=== PATIENT | male | born 1965 | race Two or more races ===

== ENCOUNTER 2017-12-26 13:19 | Inpatient (IN) | payer MEDICAID ==
[~2017-12-26] VITALS: Ht 170.2 cm; Wt 130.6 kg
[2017-12-26] MEDS ORDERED: GABAPENTIN100 MG ORAL (13:57)
[2017-12-26] MEDS ORDERED: METOPROLOL TAR100 M1 ORAL (13:57)
[2017-12-26] MEDS ORDERED: ZOLOFT50 MG ORAL (13:57)
[2017-12-26] MEDS ORDERED: SPIRONOLACTONE25 MG ORAL (13:57)
[2017-12-26] MEDS ORDERED: ASPIR 8181 MG ORAL (13:57)
[2017-12-26] MEDS ORDERED: SEROQUEL XR200 MG ORAL (13:57)
[2017-12-26] MEDS: Albuterol ud Inhalation HHN SCH ×3 (14:07→15:50)
[2017-12-26] MEDS: Ipratropium 0.02% Inh Soln 2.5ml UD HHN SCH ×3 (14:07→15:50)
[2017-12-26 14:30] VITALS: BP 137/99
[2017-12-26 14:30] LABS: BASOPHILS % (AUTO) 1.1 % (0.0-2.0); EOSINOPHILS % (AUTO) 1.2 % (0.0-3.0); HEMOGLOBIN 15.1 G/DL (14.2-18.0); LYMPHOCYTES % (AUTO) 24.5 % (20.0-45.0); MEAN CORPUSCULAR VOLUME 91 FL (80-99); NEUTROPHILS % (AUTO) 65.3 % (45.0-75.0); PLATELET COUNT 207 K/UL (150-450); RED BLOOD COUNT 5.05 M/UL (4.70-6.10); RED CELL DISTRIBUTION WIDTH 12.1 % (11.6-14.8); WHITE BLOOD COUNT 8.3 K/UL (4.8-10.8)
--- NOTE | 2017-12-26 14:31 | Diagnostic Imaging Report ---
Indication: Shortness of breath Technique: XRAY Chest 1v Comparison: None Findings: Heart is enlarged. Mediastinal contours are sharp. There is mild central pulmonary vascular congestion. There is no focal airspace consolidation. Costophrenic sulci are sharp. No pneumothorax. No acute osseous abnormality. IMPRESSION: Cardiomegaly with questionable mild central pulmonary vascular congestion. No focal consolidation, pleural effusion or pneumothorax.
[2017-12-26 14:48] LABS: ANION GAP 10 mmol/L (5-15); BLOOD UREA NITROGEN 22 mg/dL (7-18); CALCIUM 8.8 MG/DL (8.5-10.1); CARBON DIOXIDE 24 MMOL/L (21-32); CHLORIDE 110 MMOL/L (98-107); CREATININE 1.2 MG/DL (0.55-1.30); SODIUM 144 MMOL/L (136-145)
[2017-12-26 15:03] LABS: ALANINE AMINOTRANSFERASE 23 U/L (12-78); ALBUMIN 3.1 G/DL (3.4-5.0); ALBUMIN/GLOBULIN RATIO 0.8 (1.0-2.7); ALKALINE PHOSPHATASE 102 U/L (46-116); ASPARTATE AMINO TRANSFERASE 14 U/L (15-37); BILIRUBIN,TOTAL 0.6 MG/DL (0.2-1.0); CKMB 1.5 NG/ML (0.0-3.6); CREATINE KINASE 74 U/L (26-308)
--- NOTE | 2017-12-26 15:35 | Emergency Room Report ---
History of Present Illness General Chief Complaint: Dyspnea/Respdistress Source: Patient Present Illness HPI 52-year-old male presents ED complaining of shortness of breath 1 day. History of CHF and states that he has "fluid around his lungs". Denies any leg swelling. States he is compliant with his medications. States that he recently moved here and does not have a PMD. Denies chest pain. Denies fevers or chills. Denies cough. No other aggravating relieving factors. Denies any other associated symptoms Allergies: Coded Allergies: No Known Allergies (Unverified , 12/26/17) Patient History Past Medical History: HTN, COPD Past Surgical History: none Pertinent Family History: none Social History: Denies: smoking, alcohol use, drug use Immunizations: UTD Reviewed Nursing Documentation: PMH: Agreed; PSxH: Agreed Nursing Documentation-PMH Hx Cardiac Problems: Yes - chf afib Hx Hypertension: Yes Hx COPD: Yes Review of Systems All Other Systems: negative except mentioned in HPI Physical Exam Vital Signs Date Time Temp Pulse Resp B/P (MAP) Pulse Ox O2 Delivery O2 Flow Rate FiO2 12/26/17 13:21 98.0 105 22 99 Room Air 98.1 12/26/17 14:07 21 12/26/17 14:30 137/99 Sp02 EP Interpretation: reviewed, normal General Appearance: no apparent distress, alert, GCS 15, non-toxic Head: normocephalic, atraumatic Eyes: bilateral eye normal inspection, bilateral eye PERRL ENT: hearing grossly normal, normal pharynx, no angioedema, normal voice Neck: full range of motion, supple/symm/no masses Respiratory: chest non-tender, crackles, speaking full sentences, wheezing Cardiovascular #1: regular rate, rhythm, no edema Cardiovascular #2: 2+ carotid (R), 2+ carotid (L), 2+ radial (R), 2+ radial (L) , 2+ dorsalis pedis (R), 2+ dorsalis pedis (L) Gastrointestinal: normal bowel sounds, non tender, soft, non-distended, no guarding, no rebound Rectal: deferred Genitourinary: normal inspection, no CVA tenderness Musculoskeletal: back normal, gait/station normal, normal range of motion, non- tender, swelling - 1+ pitting edema Neurologic: alert, oriented x3, responsive, motor strength/tone normal, sensory intact, speech normal Psychiatric: judgement/insight normal, memory normal, mood/affect normal, no suicidal/homicidal ideation Reflexes: 3+ bicep (R), 3+ bicep (L), 3+ tricep (R), 3+ tricep (L), 3+ knee (R) , 3+ knee (L) Skin: normal color, no rash, warm/dry, well hydrated Lymphatic: no adenopathy Medical Decision Making Diagnostic Impression: Primary Impression: CHF exacerbation Qualified Codes: I50.9 - Heart failure, unspecified ER Course Hospital Course 52-year-old male presents ED complaining of shortness of breath, leg swelling Differential diagnoses include: [place]/unstable angina, contusion, muscle strain, PTX, rib fracture Clinical course Patient placed on stretcher. on diagnostic cardiac sonographer. After initial history and physical I ordered labs, EKG, chest x-ray labs reviewed- no leukocytosis, hemoglobin/hematocrit stable, creatinine elevated, troponins negative, BNP greater than 4000 EKG - NSR, no acute ischemic changes interpreted by me Chest x-ray- pulmonary congestion Breathing improved with nebulizer treatments Case discussed with Dr. Kern and he agreed to accept the patient to his service for further care and support I. I feel this is a highly complex case requiring extensive working including EKG/Rhythm strip, Xray/CT/US, Blood/urine lab work, repeat exams while in ED, and administration of strong opiates/narcotics for pain control, admission to hospital or close patient follow up. Diagnosis - CHF exacerbation admitted to telemetry in serious condition Labs Test 12/26/17 14:15 White Blood Count 8.3 K/UL (4.8-10.8) Red Blood Count 5.05 M/UL (4.70-6.10) Hemoglobin 15.1 G/DL (14.2-18.0) Hematocrit 46.0 % (42.0-52.0) Mean Corpuscular Volume 91 FL (80-99) Mean Corpuscular Hemoglobin 29.9 PG (27.0-31.0) Mean Corpuscular Hemoglobin Concent 32.8 G/DL (32.0-36.0) Red Cell Distribution Width 12.1 % (11.6-14.8) Platelet Count 207 K/UL (150-450) Mean Platelet Volume 7.0 FL (6.5-10.1) Neutrophils (%) (Auto) 65.3 % (45.0-75.0) Lymphocytes (%) (Auto) 24.5 % (20.0-45.0) Monocytes (%) (Auto) 8.0 % (1.0-10.0) Eosinophils (%) (Auto) 1.2 % (0.0-3.0) Basophils (%) (Auto) 1.1 % (0.0-2.0) Sodium Level 144 MMOL/L (136-145) Potassium Level 4.0 MMOL/L (3.5-5.1) Chloride Level 110 MMOL/L (98-107) Carbon Dioxide Level 24 MMOL/L (21-32) Anion Gap 10 mmol/L (5-15) Blood Urea Nitrogen 22 mg/dL (7-18) Creatinine 1.2 MG/DL (0.55-1.30) Estimat Glomerular Filtration Rate > 60 mL/min (>60) Glucose Level 99 MG/DL (74-106) Calcium Level 8.8 MG/DL (8.5-10.1) Total Bilirubin 0.6 MG/DL (0.2-1.0) Aspartate Amino Transf (AST/SGOT) 14 U/L (15-37) Alanine Aminotransferase (ALT/SGPT) 23 U/L (12-78) Alkaline Phosphatase 102 U/L (46-116) Total Creatine Kinase 74 U/L (26-308) Creatine Kinase MB 1.5 NG/ML (0.0-3.6) Creatine Kinase MB Relative Index 2.0 Troponin I 0.003 ng/mL (0.000-0.056) Pro-B-Type Natriuretic Peptide 4907 pg/mL (0-125) Total Protein 6.9 G/DL (6.4-8.2) Albumin 3.1 G/DL (3.4-5.0) Globulin 3.8 g/dL Albumin/Globulin Ratio 0.8 (1.0-2.7) EKG Diagnostic Results Rate: normal Rhythm: NSR ST Segments: no acute changes ASA given to the pt in ED: No Rhythm Strip Diag. Results EP Interpretation: yes Rhythm: NSR, no PVC's, no ectopy Chest X-Ray Diagnostic Results Chest X-Ray Diagnostic Results : Chest X-Ray Ordered: Yes # of Views/Limited/Complete: 1 View Indication: Shortness of Breath EP Interpretation: Yes Interpretation: no pneumothorax, other - cardiomegaly. pulmoanry congestion Impression: Other - chf Electronically Signed by: Electronically signed by Adolfo Irby MD Last Vital Signs Date Time Temp Pulse Resp B/P (MAP) Pulse Ox O2 Delivery O2 Flow Rate FiO2 12/26/17 14:39 83 12 100 Room Air 21 12/26/17 14:30 98.1 137/99 98.1 Status: improved Disposition: ADMITTED INPATIENT Condition: Serious Referrals: NOT CHOSEN IPA/,REFERRING (PCP) Adolfo Irby MD Dec 26, 2017 15:35
[2017-12-26 16:46] LABS: APPEARANCE,URINE CLEAR; BILIRUBIN, URINE NEGATIVE (NEGATIVE); GLUCOSE, URINE (UA) NEGATIVE (NEGATIVE); KETONES,URINE NEGATIVE (NEGATIVE); LEUKOCYTE ESTERASE ,URINE NEGATIVE (NEGATIVE); NITRITE,URINE NEGATIVE (NEGATIVE); PH,URINE 5 (4.5-8.0); PROTEIN,URINE 4+ (NEGATIVE); UROBILINOGEN,URINE NORMAL MG/DL (0.0-1.0)
[2017-12-26 16:58] LABS: COLOR,URINE YELLOW
[2017-12-26] MEDS ORDERED: Miralax 17gm pkt ORAL PRN (17:30)
[2017-12-26] MEDS ORDERED: Albuterol/Ipratropium 3ml neb HHN PRN (17:30)
[2017-12-26] MEDS ORDERED: INDOMETHACIN50 MG PO (19:44)
[2017-12-26 20:00] VITALS: BP 147/107
[2017-12-26] MEDS: QUEtiapine 200mg tab ORAL SCH (20:45)
[2017-12-26] MEDS: Indomethacin 25mg cap ORAL SCH (20:46)
[2017-12-26] MEDS: Heparin 5000 units/ml inj SUBQ SCH (20:46)
[2017-12-27] VITALS: BP 133/81
[2017-12-27 04:00] VITALS: BP 130/79
[2017-12-27 08:00] VITALS: BP 120/88
[2017-12-27 08:46] LABS: BASOPHILS % (AUTO) 1.1 % (0.0-2.0); EOSINOPHILS % (AUTO) 1.2 % (0.0-3.0); HEMATOCRIT 45.8 % (42.0-52.0); HEMOGLOBIN 15.6 G/DL (14.2-18.0); LYMPHOCYTES % (AUTO) 28.2 % (20.0-45.0); MEAN CORPUSCULAR VOLUME 89 FL (80-99); MONOCYTES % (AUTO) 6.6 % (1.0-10.0); NEUTROPHILS % (AUTO) 62.9 % (45.0-75.0); PLATELET COUNT 210 K/UL (150-450); RED BLOOD COUNT 5.13 M/UL (4.70-6.10); RED CELL DISTRIBUTION WIDTH 11.7 % (11.6-14.8); WHITE BLOOD COUNT 6.4 K/UL (4.8-10.8)
[2017-12-27 09:04] LABS: ALBUMIN 2.9 G/DL (3.4-5.0); ANION GAP 9 mmol/L (5-15); BLOOD UREA NITROGEN 20 mg/dL (7-18); CALCIUM 9.1 MG/DL (8.5-10.1); CARBON DIOXIDE 28 MMOL/L (21-32); CHLORIDE 107 MMOL/L (98-107); CREATININE 1.3 MG/DL (0.55-1.30); PHOSPHORUS 3.4 MG/DL (2.5-4.9); POTASSIUM 3.4 MMOL/L (3.5-5.1); SODIUM 144 MMOL/L (136-145)
[2017-12-27] MEDS: Indomethacin 25mg cap ORAL SCH ×3 (09:05→18:03)
[2017-12-27] MEDS: Heparin 5000 units/ml inj SUBQ SCH (09:09)
[2017-12-27] MEDS: Sertraline 50mg tab ORAL SCH (09:14)
[2017-12-27 12:00] VITALS: BP 142/102
--- NOTE | 2017-12-27 12:13 | Consultation ---
History of Present Illness General Date patient seen: Dec 27, 2017 Chief Complaint: Dyspnea/Respdistress Present Illness HPI 52-year-old male with hx of afib, CHF, presented to ED complaining of shortness of breath 1 day. States he is compliant with his medications. pt was found to have acute CHF and admitted to telemetry for further management. Allergies: Coded Allergies: No Known Allergies (Unverified , 12/26/17) Medication History Scheduled Aspirin* (Aspir 81*), 81 MG ORAL DAILY, (Reported) Gabapentin* (Gabapentin*), 100 MG ORAL BID, (Reported) Indomethacin (Indomethacin), 50 MG PO TID, (Reported) Metoprolol Tartrate* (Metoprolol Tartrate*), 100 MG ORAL EVERY 12 HOURS, ( Reported) Quetiapine Fumarate (Seroquel Xr), 200 MG ORAL BEDTIME, (Reported) Sertraline Hcl* (Zoloft*), 50 MG ORAL DAILY, (Reported) Spironolactone* (Aldactone*), 25 MG ORAL DAILY, (Reported) Patient History Healthcare decision maker self Resuscitation status Full Code Advanced Directive on File No Past Medical/Surgical History Past Medical/Surgical History: (1) Atrial fibrillation Review of Systems All Other Systems: negative except mentioned in HPI Physical Exam General Appearance: WD/WN Lines, tubes and drains: peripheral HEENT: normocephalic Neck: non-tender, normal alignment Respiratory/Chest: chest wall non-tender, lungs clear Breasts: no masses Cardiovascular/Chest: normal peripheral pulses Abdomen: normal bowel sounds Genitourinary/Rectal: normal genital exam Last 24 Hour Vital Signs Date Time Temp Pulse Resp B/P (MAP) Pulse Ox O2 Delivery O2 Flow Rate FiO2 12/27/17 09:07 84 120/88 12/27/17 08:39 Room Air 12/27/17 08:00 97.3 84 20 120/88 (99) 98 97.3 12/27/17 04:40 90 20 Room Air 21 12/27/17 04:00 74 12/27/17 04:00 98.2 70 20 130/79 (96) 98 98.2 12/27/17 00:00 98.3 74 20 133/81 (98) 94 98.3 12/27/17 00:00 81 12/26/17 21:00 Room Air 12/26/17 20:46 89 147/107 12/26/17 20:00 98.0 89 23 147/107 (120) 97 98.0 12/26/17 20:00 90 12/26/17 18:45 Room Air Room Air 12/26/17 17:10 98.1 94 20 137/99 100 Room Air 98.1 12/26/17 15:50 97 20 100 Room Air 21 12/26/17 14:39 83 12 100 Room Air 21 12/26/17 14:30 98.1 94 14 137/99 100 Room Air 98.1 12/26/17 14:30 89 17 Room Air 12/26/17 14:21 89 17 100 Room Air 21 12/26/17 14:19 87 16 100 Room Air 12/26/17 14:10 86 16 Room Air 12/26/17 14:07 86 16 100 Room Air 12/26/17 13:21 98.0 105 22 99 Room Air 98.1 Intake and Output 12/26/17 12/27/17 19:00 07:00 Intake Total 0 ml 480 ml Output Total 1000 ml Balance 0 ml -520 ml Intake Oral 0 ml 480 ml Output Urine Total 1000 ml Laboratory Tests Test 12/26/17 14:15 12/26/17 16:21 12/26/17 19:50 12/27/17 08:20 White Blood Count 8.3 K/UL (4.8-10.8) 6.4 K/UL (4.8-10.8) Red Blood Count 5.05 M/UL (4.70-6.10) 5.13 M/UL (4.70-6.10) Hemoglobin 15.1 G/DL (14.2-18.0) 15.6 G/DL (14.2-18.0) Hematocrit 46.0 % (42.0-52.0) 45.8 % (42.0-52.0) Mean Corpuscular Volume 91 FL (80-99) 89 FL (80-99) Mean Corpuscular Hemoglobin 29.9 PG (27.0-31.0) 30.3 PG (27.0-31.0) Mean Corpuscular Hemoglobin Concent 32.8 G/DL (32.0-36.0) 33.9 G/DL (32.0-36.0) Red Cell Distribution Width 12.1 % (11.6-14.8) 11.7 % (11.6-14.8) Platelet Count 207 K/UL (150-450) 210 K/UL (150-450) Mean Platelet Volume 7.0 FL (6.5-10.1) 6.9 FL (6.5-10.1) Neutrophils (%) (Auto) 65.3 % (45.0-75.0) 62.9 % (45.0-75.0) Lymphocytes (%) (Auto) 24.5 % (20.0-45.0) 28.2 % (20.0-45.0) Monocytes (%) (Auto) 8.0 % (1.0-10.0) 6.6 % (1.0-10.0) Eosinophils (%) (Auto) 1.2 % (0.0-3.0) 1.2 % (0.0-3.0) Basophils (%) (Auto) 1.1 % (0.0-2.0) 1.1 % (0.0-2.0) Sodium Level 144 MMOL/L (136-145) 144 MMOL/L (136-145) Potassium Level 4.0 MMOL/L (3.5-5.1) 3.4 MMOL/L (3.5-5.1) L Chloride Level 110 MMOL/L (98-107) H 107 MMOL/L (98-107) Carbon Dioxide Level 24 MMOL/L (21-32) 28 MMOL/L (21-32) Anion Gap 10 mmol/L (5-15) 9 mmol/L (5-15) Blood Urea Nitrogen 22 mg/dL (7-18) H 20 mg/dL (7-18) H Creatinine 1.2 MG/DL (0.55-1.30) 1.3 MG/DL (0.55-1.30) Estimat Glomerular Filtration Rate > 60 mL/min (>60) 58.4 mL/min (>60) Glucose Level 99 MG/DL (74-106) 138 MG/DL (74-106) H Calcium Level 8.8 MG/DL (8.5-10.1) 9.1 MG/DL (8.5-10.1) Total Bilirubin 0.6 MG/DL (0.2-1.0) Aspartate Amino Transf (AST/SGOT) 14 U/L (15-37) L Alanine Aminotransferase (ALT/SGPT) 23 U/L (12-78) Alkaline Phosphatase 102 U/L (46-116) Total Creatine Kinase 74 U/L (26-308) Creatine Kinase MB 1.5 NG/ML (0.0-3.6) Creatine Kinase MB Relative Index 2.0 Troponin I 0.003 ng/mL (0.000-0.056) 0.004 ng/mL (0.000-0.056) Pro-B-Type Natriuretic Peptide 4907 pg/mL (0-125) H Total Protein 6.9 G/DL (6.4-8.2) Albumin 3.1 G/DL (3.4-5.0) L 2.9 G/DL (3.4-5.0) L Globulin 3.8 g/dL Albumin/Globulin Ratio 0.8 (1.0-2.7) L Urine Color Yellow Urine Appearance Clear Urine pH 5 (4.5-8.0) Urine Specific [place] 1.020 (1.005-1.035) Urine Protein 4+ (NEGATIVE) H Urine Glucose (UA) Negative (NEGATIVE) Urine Ketones Negative (NEGATIVE) Urine Occult Blood 2+ (NEGATIVE) H Urine Nitrite Negative (NEGATIVE) Urine Bilirubin Negative (NEGATIVE) Urine Urobilinogen Normal MG/DL (0.0-1.0) Urine Leukocyte Esterase Negative (NEGATIVE) Urine RBC 2-4 /HPF (0 - 0) H Urine WBC 0-2 /HPF (0 - 0) Urine Squamous Epithelial Cells Few /LPF (NONE/OCC) Urine Bacteria Few /HPF (NONE) Urine Opiates Screen Negative (NEGATIVE) Urine Barbiturates Screen Negative (NEGATIVE) Phencyclidine (PCP) Screen Negative (NEGATIVE) Urine Amphetamines Screen Negative (NEGATIVE) Urine Benzodiazepines Screen Negative (NEGATIVE) Urine Cocaine Screen Negative (NEGATIVE) Urine Marijuana (THC) Screen Positive (NEGATIVE) H Phosphorus Level 3.4 MG/DL (2.5-4.9) Height (Feet): 5 Height (Inches): 7.00 Weight (Pounds): 253 Medications Current Medications Medications (Trade) Dose Ordered Sig/Yoon Route PRN Reason Start Time Stop Time Status Last Admin Dose Admin Acetaminophen (Tylenol) 650 mg Q4H PRN ORAL Fever 12/26/17 17:30 01/25/18 17:29 Albuterol/ Ipratropium (Albuterol/ Ipratropium) 3 ml Q4H PRN HHN Shortness of Breath 12/26/17 17:30 12/31/17 17:29 Dextrose (Dextrose 50%) 25 ml STAT PRN IV Hypoglycemia 12/26/17 17:30 01/25/18 17:29 Dextrose (Dextrose 50%) 50 ml STAT PRN IV Hypoglycemia 12/26/17 17:45 01/25/18 17:44 Furosemide (Lasix) 40 mg Q8H IV 12/27/17 00:00 01/26/18 00:00 12/27/17 09:14 Heparin Sodium (Porcine) (Heparin 5000 units/ml) 5,000 units EVERY 12 HOURS SUBQ 12/26/17 21:00 01/25/18 20:59 12/27/17 09:09 Indomethacin (Indocin) 50 mg THREE TIMES A DAY ORAL 12/26/17 20:30 01/25/18 20:29 12/27/17 09:05 Metoprolol Tartrate (Lopressor) 100 mg EVERY 12 HOURS ORAL 12/26/17 21:00 01/25/18 20:59 12/27/17 09:07 Ondansetron HCl (Zofran) 4 mg Q6H PRN IVP Nausea & Vomiting 12/26/17 17:30 01/25/18 17:29 Polyethylene Glycol (Miralax) 17 gm DAILYPRN PRN ORAL Constipation 12/26/17 17:30 01/25/18 17:29 Quetiapine Fumarate (SEROquel) 200 mg BEDTIME ORAL 12/26/17 21:00 01/25/18 20:59 12/26/17 20:45 Sertraline HCl (Zoloft) 50 mg DAILY ORAL 12/27/17 09:00 01/26/18 08:59 12/27/17 09:14 Temazepam (Restoril) 15 mg HSPRN PRN ORAL Insomnia 12/26/17 17:30 01/02/18 17:29 Assessment/Plan Problem List: (1) CHF exacerbation ICD Codes: I50.9 - Heart failure, unspecified SNOMED: 58666921 Qualifiers: Qualified Codes: I50.9 - Heart failure, unspecified (2) Atrial fibrillation ICD Codes: I48.91 - Unspecified atrial fibrillation SNOMED: 61576234 Assessment/Plan diuretics echo check electrolytes cxr and bnp in am adjust cardiac meds. Edwina Chappell MD Dec 27, 2017 12:13
--- NOTE | 2017-12-27 12:39 | Diagnostic Imaging Report ---
Indication: Dyspnea Technique: One view of the chest Comparison: 12/26/2017 Findings: Heart remains borderline enlarged. There is equivocal minimal pulmonary interstitial congestion, unchanged from previous study. Pleural spaces remain clear Impression: Equivocal minimal interstitial congestion, unchanged over one day
[2017-12-27 16:00] VITALS: BP 134/78
--- NOTE | 2017-12-27 19:30 | History and Physical Report ---
DATE OF ADMISSION: 12/26/2017 TIME: 2 p.m. CONSULTANTS: 1. Silvano Maloney M.D. 2. Edwina Chappell M.D. CHIEF COMPLAINT: Shortness of breath, CHF, COPD, and hypertension. BRIEF HISTORY: This is a 52-year-old male, who lives at home with increased shortness of breath for two days, came to [facility], diagnosed with CHF and COPD exacerbation, admitted to telemetry for further care. Currently, slight short in bed. No complaint. PAST MEDICAL HISTORY: Hypertension, COPD, and CHF, possible atrial fibrillation. PAST SURGICAL HISTORY: None. MEDICATIONS: Zoloft, Lasix, Lopressor, heparin, Seroquel, Indocin, Restoril, Zofran and Tylenol. ALLERGIES: Denies. SOCIAL HISTORY: Positive smoking. No alcohol. No intravenous drug abuse. FAMILY HISTORY: Noncontributory. REVIEW OF SYSTEMS: No chest pain. Slight short of breath. No nausea, vomiting, or diarrhea. PHYSICAL EXAMINATION: GENERAL: Calm in bed, oriented x2, in no acute distress. VITAL SIGNS: Temperature 97 degrees, pulse 84, respirations 20 and blood pressure 120/88. CARDIOVASCULAR: No murmur. LUNGS: Distant. Poor air exchange. ABDOMEN: Bowel sounds positive. Nontender. Nondistended. EXTREMITIES: No cyanosis or edema. NEUROLOGIC: The patient moves all extremities, slightly weak. LABORATORY AND DIAGNOSTIC DATA: CBC is normal. BMP show potassium 3.4, BUN 20, and glucose 138, otherwise BMP is normal. Albumin 2.9. Troponin 0.003 and 0.004. Urine toxicology positive for marijuana. Urinalysis, 2+ occult blood and 4+ protein, otherwise normal. ASSESSMENT: 1. CHF. 2. Shortness of breath. 3. COPD. 4. Hypertension. 5. Atrial fibrillation. PLAN: 1. Continue previous medications. 2. O2 and pulmonary treatment. 3. Blood pressure control. 4. Dietary followup. 5. CBC and BMP in the morning. Paolo Kern D.O. DR: LASHAY JOB#: [id number] CC:
--- NOTE | 2017-12-27 19:45 | Cardiology Progress Note ---
Assessment/Plan Assessment/Plan The patient is seen and examined, full consult note will be dictated shortly. Objective Last 24 Hour Vital Signs Date Time Temp Pulse Resp B/P (MAP) Pulse Ox O2 Delivery O2 Flow Rate FiO2 12/27/17 16:00 97.0 79 22 134/78 (96) 95 97.0 12/27/17 16:00 89 12/27/17 12:00 86 12/27/17 12:00 97.7 86 23 142/102 (115) 95 97.7 12/27/17 09:07 84 120/88 12/27/17 08:39 Room Air 12/27/17 08:00 97.3 84 20 120/88 (99) 98 97.3 12/27/17 08:00 81 12/27/17 04:40 90 20 Room Air 21 12/27/17 04:00 74 12/27/17 04:00 98.2 70 20 130/79 (96) 98 98.2 12/27/17 00:00 98.3 74 20 133/81 (98) 94 98.3 12/27/17 00:00 81 12/26/17 21:00 Room Air 12/26/17 20:46 89 147/107 12/26/17 20:00 98.0 89 23 147/107 (120) 97 98.0 12/26/17 20:00 90 Intake and Output 12/26/17 12/27/17 19:00 07:00 Intake Total 0 ml 480 ml Output Total 1000 ml Balance 0 ml -520 ml Intake Oral 0 ml 480 ml Output Urine Total 1000 ml Laboratory Tests Test 12/26/17 19:50 12/27/17 08:20 Troponin I 0.004 ng/mL (0.000-0.056) White Blood Count 6.4 K/UL (4.8-10.8) Red Blood Count 5.13 M/UL (4.70-6.10) Hemoglobin 15.6 G/DL (14.2-18.0) Hematocrit 45.8 % (42.0-52.0) Mean Corpuscular Volume 89 FL (80-99) Mean Corpuscular Hemoglobin 30.3 PG (27.0-31.0) Mean Corpuscular Hemoglobin Concent 33.9 G/DL (32.0-36.0) Red Cell Distribution Width 11.7 % (11.6-14.8) Platelet Count 210 K/UL (150-450) Mean Platelet Volume 6.9 FL (6.5-10.1) Neutrophils (%) (Auto) 62.9 % (45.0-75.0) Lymphocytes (%) (Auto) 28.2 % (20.0-45.0) Monocytes (%) (Auto) 6.6 % (1.0-10.0) Eosinophils (%) (Auto) 1.2 % (0.0-3.0) Basophils (%) (Auto) 1.1 % (0.0-2.0) Sodium Level 144 MMOL/L (136-145) Potassium Level 3.4 MMOL/L (3.5-5.1) L Chloride Level 107 MMOL/L (98-107) Carbon Dioxide Level 28 MMOL/L (21-32) Anion Gap 9 mmol/L (5-15) Blood Urea Nitrogen 20 mg/dL (7-18) H Creatinine 1.3 MG/DL (0.55-1.30) Estimat Glomerular Filtration Rate 58.4 mL/min (>60) Glucose Level 138 MG/DL (74-106) H Calcium Level 9.1 MG/DL (8.5-10.1) Phosphorus Level 3.4 MG/DL (2.5-4.9) Albumin 2.9 G/DL (3.4-5.0) L Silvano Maloney MD Dec 27, 2017 19:45
[2017-12-27 20:00] VITALS: BP 136/111
[2017-12-27] MEDS: dilTIAZem HCl 30mg tab ORAL SCH ×2 (20:35→23:52)
[2017-12-27] MEDS: QUEtiapine 200mg tab ORAL SCH (20:36)
[2017-12-27] MEDS ORDERED: Xarelto 10mg tab ORAL SCH (21:00)
[2017-12-28] VITALS: BP 128/64
--- NOTE | 2017-12-28 03:30 | Consultation ---
DATE OF CONSULTATION: 12/27/2017 CARDIOLOGY CONSULTATION CONSULTING PHYSICIAN: Silvano Maloney M.D. REFERRING PHYSICIAN: Paolo Kern D.O. REASON FOR CONSULTATION: Management of shortness of breath. HISTORY OF PRESENT ILLNESS: The patient is a very unfortunate 52-year-old gentleman who presents to the hospital with shortness of breath for about a day. He states that he was recently passed out few times and was admitted to [facility] and was given IV fluid and was discharged home. He ran out of medications such as metoprolol and Lasix for the past week. He states that he has been having persistent atrial fibrillation for the past three and half years and he underwent electrical cardioversion once at that time, which was successful initially, however, he went back to atrial fibrillation. He was seen by a typewriter aligner in [place] and was on a combination of metoprolol for rate control as well as Xarelto as an anticoagulant agent. He also is current daily smoker, smoking about 10 to 12 cigarettes per day and has history of COPD. In the past, he was treated with prednisone tapering dose. PAST MEDICAL HISTORY: 1. Hypertension. 2. History of persistent atrial fibrillation, status post cardioversion in the past. 3. History of COPD. 4. History of PTSD. 5. History of congestive heart failure. PAST SURGICAL HISTORY: None. MEDICATIONS: List of medications at home, aspirin 81 mg p.o. daily, gabapentin 100 mg p.o. twice daily, indomethacin 50 mg three times daily, metoprolol 100 mg q.12 h., Seroquel 200 mg at bedtime, Zoloft 50 mg daily, and Aldactone 25 mg daily. ALLERGIES: No known drug allergies. SOCIAL HISTORY: Smokes about 10 to 12 cigarettes per day. Denies any alcohol or illicit drug use. FAMILY HISTORY: No premature coronary artery disease or arrhythmogenic in the first-degree relatives. REVIEW OF SYSTEMS: A 12-system review done essentially negative except what mentioned in the history of present illness. PHYSICAL EXAMINATION: VITAL SIGNS: Blood pressure was 137/99, pulse of 105, respirations 22, O2 saturation 99% on room air, and temperature 98.0 degrees Fahrenheit. GENERAL: The patient is a very unfortunate 52-year-old gentleman, in no apparent respiratory distress. Alert and oriented x4. HEENT: Atraumatic and normocephalic. Anicteric. Pupils are equal, round, and reactive to light and accommodation. Extraocular muscles intact. NECK: JVP less than 5 cm. No carotid bruits. Carotid upstrokes 2+ bilaterally. CARDIOVASCULAR: Normal S1 and S2. Irregularly irregular rhythm. No murmurs, gallops or rubs, although the heart sounds are distant. LUNGS: There is bilateral rhonchi with diminished breath sounds and prolonged expiratory phase. ABDOMEN: Obese. No hepatosplenomegaly. Positive bowel sounds. EXTREMITIES: No evidence of edema, clubbing, or cyanosis. LABORATORY AND DIAGNOSTIC DATA: Chest x-ray shows minimal interstitial congestion. A 2D echocardiography shows normal LV size with mildly decreased function, global left ventricular hypokinesia with LVEF of about 50%, most likely due to underlying atrial fibrillation. Diastolic data could not be obtained due to atrial fibrillation and there is dilation of IVC with physiologic collapse translating into right atrial pressure of about 10 mmHg. There was right ventricular systolic pressure measured at 23 mmHg. Laboratory findings, sodium was 144, potassium is 4.0, chloride 110, bicarbonate 24, BUN of 22, creatinine 1.2, and glucose 99. Calcium is 8.8. Troponin I x2 negative. ProBNP was . WBC is 8.3, hemoglobin 15.1, hematocrit of 46.0, and platelet count is 207. Toxicology showed positive marijuana. A 12-lead electrocardiogram, atrial fibrillation, rate of 92, prolonged QT interval, and no acute ST and T-wave abnormalities. ASSESSMENT AND PLAN: The patient is a very unfortunate 52-year-old gentleman, seen in Cardiology consultation at request of Dr. Kern. 1. Persistent atrial fibrillation with slightly higher ventricular response. We would like switching the patient to calcium channel madelyn as he has active bronchospasm and metoprolol is not suggested. A 2D echocardiography shows mildly decreased left ventricular systolic function likely due to underlying atrial fibrillation, LVEF is estimated about 45% to 50%. 2. Dyspnea, possibly combination of acute exacerbation of COPD, given the presence of acute bronchospasms on the clinical exam as well as mild diastolic heart failure likely due to atrial fibrillation with rapid ventricular response. The patient may benefit from a strong anti-inflammatory such as IV steroid. We will leave it at discretion of medical charge entry specialist. The patient requires to also be on regular nebulizer treatment possibly intravenous antibiotics and pulmonary toilet. 3. From the cardiac standpoint, a small oral dose of diuretics such as Lasix. Again, we will discontinue metoprolol given the active bronchoconstriction. 4. History of nonobstructive CAD with angiography done in [place]. 5. History of syncope with recent admission to [facility], as could be secondary to over diuresis. Other etiologies could be neurocardiogenic or due to bradyarrhythmias associated with atrial fibrillation. 6. History of PTSD. 7. History of hypertension. 8. History of tobacco use as well as marijuana use. I would like to thank, Dr. Kern, for allowing me to participate in the care of this patient. Silvano Maloney M.D. DR: CASSI JOB#: [id number] CC:
[2017-12-28 04:00] VITALS: BP 124/84
[2017-12-28] MEDS: dilTIAZem HCl 30mg tab ORAL SCH ×2 (05:09→12:00)
[2017-12-28 07:46] LABS: BASOPHILS % (AUTO) 1.1 % (0.0-2.0); HEMOGLOBIN 16.6 G/DL (14.2-18.0); LYMPHOCYTES % (AUTO) 33.4 % (20.0-45.0); MEAN CORPUSCULAR VOLUME 89 FL (80-99); MONOCYTES % (AUTO) 6.9 % (1.0-10.0); NEUTROPHILS % (AUTO) 57.6 % (45.0-75.0); PLATELET COUNT 214 K/UL (150-450); RED BLOOD COUNT 5.39 M/UL (4.70-6.10); RED CELL DISTRIBUTION WIDTH 11.4 % (11.6-14.8); WHITE BLOOD COUNT 7.1 K/UL (4.8-10.8)
[2017-12-28 08:00] VITALS: BP 136/91
[2017-12-28] MEDS: Sertraline 50mg tab ORAL SCH (08:34)
[2017-12-28] MEDS: Indomethacin 25mg cap ORAL SCH ×2 (08:34→12:38)
[2017-12-28 08:55] LABS: ALANINE AMINOTRANSFERASE 29 U/L (12-78); ALBUMIN 3.3 G/DL (3.4-5.0); ALBUMIN/GLOBULIN RATIO 0.9 (1.0-2.7); ALKALINE PHOSPHATASE 105 U/L (46-116); ANION GAP 10 mmol/L (5-15); ASPARTATE AMINO TRANSFERASE 16 U/L (15-37); BILIRUBIN,TOTAL 0.7 MG/DL (0.2-1.0); BLOOD UREA NITROGEN 25 mg/dL (7-18); CALCIUM 9.3 MG/DL (8.5-10.1); CARBON DIOXIDE 26 MMOL/L (21-32); CHLORIDE 106 MMOL/L (98-107); CREATININE 1.2 MG/DL (0.55-1.30); POTASSIUM 3.6 MMOL/L (3.5-5.1); SODIUM 142 MMOL/L (136-145)
[2017-12-28] MEDS ORDERED: Furosemide 40mg tab ORAL SCH (09:00)
--- NOTE | 2017-12-28 11:55 | Diagnostic Imaging Report ---
Indication: Dyspnea Technique: One view of the chest Comparison: 12/27/2017 Findings: Lungs and pleural spaces are clear. Heart size is normal. No significant interim change Impression: No acute process
[2017-12-28 12:00] VITALS: BP 138/98
--- NOTE | 2017-12-28 12:00 | General Progress Note ---
Assessment/Plan Problem List: (1) SOB (shortness of breath) ICD Codes: R06.02 - Shortness of breath SNOMED: 759067050 (2) HTN (hypertension) ICD Codes: I10 - Essential (primary) hypertension SNOMED: 20893448 (3) COPD (chronic obstructive pulmonary disease) ICD Codes: J44.9 - Chronic obstructive pulmonary disease, unspecified SNOMED: 24168966 (4) Atrial fibrillation ICD Codes: I48.91 - Unspecified atrial fibrillation SNOMED: 70675213 (5) CHF exacerbation ICD Codes: I50.9 - Heart failure, unspecified SNOMED: 50260906 Qualifiers: Qualified Codes: I50.9 - Heart failure, unspecified Status: stable, progressing Assessment/Plan o2 pulm tx bp control dc if clear Subjective Constitutional: Reports: weakness Allergies: Coded Allergies: No Known Allergies (Unverified , 12/26/17) All Systems: reviewed and negative except above Subjective calm in bed wants to leave Objective Last 24 Hour Vital Signs Date Time Temp Pulse Resp B/P (MAP) Pulse Ox O2 Delivery O2 Flow Rate FiO2 12/28/17 10:43 97 Room Air 12/28/17 10:43 87 20 Room Air 21 12/28/17 10:43 Room Air 12/28/17 09:00 Room Air 12/28/17 08:00 98.0 56 20 136/91 (106) 93 98.0 12/28/17 08:00 77 12/28/17 05:09 78 124/84 12/28/17 04:00 69 12/28/17 04:00 98.0 78 20 124/84 (97) 95 98.0 12/28/17 01:07 92 18 100 Room Air 21 12/28/17 01:00 36 12/28/17 01:00 94 18 95 Room Air 21 12/28/17 00:00 97.0 83 20 128/64 (85) 94 97.0 12/28/17 00:00 70 12/27/17 23:52 83 128/64 12/27/17 21:00 Room Air 12/27/17 20:35 84 136/111 12/27/17 20:00 84 12/27/17 20:00 97.6 77 20 136/111 (119) 94 97.6 12/27/17 16:00 97.0 79 22 134/78 (96) 95 97.0 12/27/17 16:00 89 12/27/17 12:00 86 12/27/17 12:00 97.7 86 23 142/102 (115) 95 97.7 Intake and Output 12/27/17 12/28/17 19:00 07:00 Intake Total 350 ml 100 ml Output Total 1000 ml 1900 ml Balance -650 ml -1800 ml Intake Oral 350 ml 100 ml Output Urine Total 1000 ml 1900 ml # Voids 1 Laboratory Tests 12/27/17 20:15: Troponin I 0.000 12/28/17 07:25: White Blood Count 7.1, Red Blood Count 5.39, Hemoglobin 16.6, Hematocrit 48.0, Mean Corpuscular Volume 89, Mean Corpuscular Hemoglobin 30.7, Mean Corpuscular Hemoglobin Concent 34.5, Red Cell Distribution Width 11.4L, Platelet Count 214, Mean Platelet Volume 6.7, Neutrophils (%) (Auto) 57.6, Lymphocytes (%) (Auto) 33.4, Monocytes (%) (Auto) 6.9, Eosinophils (%) (Auto) 1.0, Basophils (%) (Auto ) 1.1, Sodium Level 142, Potassium Level 3.6, Chloride Level 106, Carbon Dioxide Level 26, Anion Gap 10, Blood Urea Nitrogen 25H, Creatinine 1.2, Estimat Glomerular Filtration Rate > 60, Glucose Level 96, Calcium Level 9.3, Total Bilirubin 0.7, Aspartate Amino Transf (AST/SGOT) 16, Alanine Aminotransferase (ALT/SGPT) 29, Alkaline Phosphatase 105, Pro-B-Type Natriuretic Peptide 2803H, Total Protein 7.0, Albumin 3.3L, Globulin 3.7, Albumin/Globulin Ratio 0.9L Height (Feet): 5 Height (Inches): 7.00 Weight (Pounds): 288 General Appearance: alert EENT: normal ENT inspection Neck: normal alignment Cardiovascular: normal peripheral pulses, normal rate, regular rhythm Respiratory/Chest: chest wall non-tender, lungs clear, normal breath sounds Abdomen: normal bowel sounds, non tender, soft Extremities: normal inspection Edema: no edema noted Arm (L), no edema noted Arm (R), no edema noted Leg (L), no edema noted Leg (R), no edema noted Pedal (L), no edema noted Pedal (R), no edema noted Generalized Neurologic: responsive, motor weakness Skin: normal pigmentation, warm/dry Paolo Kern DO Dec 28, 2017 12:00
--- NOTE | 2017-12-28 12:41 | Pulmonology Progress Note ---
Assessment/Plan Problems: (1) CHF exacerbation (2) Atrial fibrillation Assessment/Plan heart rate controlled f/u cardiology recommendations dc planning Subjective ROS Limited/Unobtainable: No Constitutional: Reports: no symptoms HEENT: Repors: no symptoms Respiratory: Reports: no symptoms Cardiovascular: Reports: no symptoms Allergies: Coded Allergies: No Known Allergies (Unverified , 12/26/17) Objective Last 24 Hour Vital Signs Date Time Temp Pulse Resp B/P (MAP) Pulse Ox O2 Delivery O2 Flow Rate FiO2 12/28/17 10:43 97 Room Air 12/28/17 10:43 87 20 Room Air 21 12/28/17 10:43 Room Air 12/28/17 09:00 Room Air 12/28/17 08:00 98.0 56 20 136/91 (106) 93 98.0 12/28/17 08:00 77 12/28/17 05:09 78 124/84 12/28/17 04:00 69 12/28/17 04:00 98.0 78 20 124/84 (97) 95 98.0 12/28/17 01:07 92 18 100 Room Air 21 12/28/17 01:00 36 12/28/17 01:00 94 18 95 Room Air 21 12/28/17 00:00 97.0 83 20 128/64 (85) 94 97.0 12/28/17 00:00 70 12/27/17 23:52 83 128/64 12/27/17 21:00 Room Air 12/27/17 20:35 84 136/111 12/27/17 20:00 84 12/27/17 20:00 97.6 77 20 136/111 (119) 94 97.6 12/27/17 16:00 97.0 79 22 134/78 (96) 95 97.0 12/27/17 16:00 89 Intake and Output 12/27/17 12/28/17 19:00 07:00 Intake Total 350 ml 100 ml Output Total 1000 ml 1900 ml Balance -650 ml -1800 ml Intake Oral 350 ml 100 ml Output Urine Total 1000 ml 1900 ml # Voids 1 General Appearance: WD/WN HEENT: normocephalic Respiratory/Chest: chest wall non-tender, normal breath sounds Cardiovascular: normal peripheral pulses Abdomen: normal bowel sounds, soft, non tender Laboratory Tests 12/27/17 20:15: Troponin I 0.000 12/28/17 07:25: White Blood Count 7.1, Red Blood Count 5.39, Hemoglobin 16.6, Hematocrit 48.0, Mean Corpuscular Volume 89, Mean Corpuscular Hemoglobin 30.7, Mean Corpuscular Hemoglobin Concent 34.5, Red Cell Distribution Width 11.4L, Platelet Count 214, Mean Platelet Volume 6.7, Neutrophils (%) (Auto) 57.6, Lymphocytes (%) (Auto) 33.4, Monocytes (%) (Auto) 6.9, Eosinophils (%) (Auto) 1.0, Basophils (%) (Auto ) 1.1, Sodium Level 142, Potassium Level 3.6, Chloride Level 106, Carbon Dioxide Level 26, Anion Gap 10, Blood Urea Nitrogen 25H, Creatinine 1.2, Estimat Glomerular Filtration Rate > 60, Glucose Level 96, Calcium Level 9.3, Total Bilirubin 0.7, Aspartate Amino Transf (AST/SGOT) 16, Alanine Aminotransferase (ALT/SGPT) 29, Alkaline Phosphatase 105, Pro-B-Type Natriuretic Peptide 2803H, Total Protein 7.0, Albumin 3.3L, Globulin 3.7, Albumin/Globulin Ratio 0.9L Current Medications Medications (Trade) Dose Ordered Sig/Yoon Route PRN Reason Start Time Stop Time Status Last Admin Dose Admin Acetaminophen (Tylenol) 650 mg Q4H PRN ORAL Fever 12/26/17 17:30 01/25/18 17:29 Albuterol/ Ipratropium (Albuterol/ Ipratropium) 3 ml Q4H PRN HHN Shortness of Breath 12/26/17 17:30 12/31/17 17:29 12/28/17 01:05 Dextrose (Dextrose 50%) 25 ml STAT PRN IV Hypoglycemia 12/26/17 17:30 01/25/18 17:29 Dextrose (Dextrose 50%) 50 ml STAT PRN IV Hypoglycemia 12/26/17 17:45 01/25/18 17:44 Diltiazem HCl (Cardizem) 30 mg EVERY 6 HOURS ORAL 12/27/17 20:00 01/26/18 19:59 12/28/17 05:09 Furosemide (Lasix) 40 mg DAILY ORAL 12/28/17 09:00 01/27/18 08:59 12/28/17 08:35 Indomethacin (Indocin) 50 mg THREE TIMES A DAY ORAL 12/26/17 20:30 01/25/18 20:29 12/28/17 12:38 Ondansetron HCl (Zofran) 4 mg Q6H PRN IVP Nausea & Vomiting 12/26/17 17:30 01/25/18 17:29 Polyethylene Glycol (Miralax) 17 gm DAILYPRN PRN ORAL Constipation 12/26/17 17:30 01/25/18 17:29 Quetiapine Fumarate (SEROquel) 200 mg BEDTIME ORAL 12/26/17 21:00 01/25/18 20:59 12/27/17 20:36 Rivaroxaban (Xarelto) 20 mg BIOTEC ORAL 12/27/17 21:00 01/26/18 20:59 12/27/17 20:35 Sertraline HCl (Zoloft) 50 mg DAILY ORAL 12/27/17 09:00 01/26/18 08:59 12/28/17 08:34 Temazepam (Restoril) 15 mg HSPRN PRN ORAL Insomnia 12/26/17 17:30 01/02/18 17:29 Edwina Chappell MD Dec 28, 2017 12:41
--- NOTE | 2017-12-28 13:47 | Cardiology Report ---
APPROVED REPORT EKG Measurement Heart [id number] Atrial fibrillation Rightward axis Nonspecific T wave abnormality Prolonged QT Abnormal ECG
--- NOTE | 2017-12-28 16:48 | Diagnostic Imaging Report ---
APPROVED REPORT CPT Code: 68297 Present Symptoms Comments: BILATERAL LEGS PAIN. BILATERAL: Imaging reveals a patent deep venous system bilaterally. There is no evidence of thrombus within the femoral, popliteal or tibial segments. The greater saphenous veins are also within normal limits. Doppler indicates normal spontaneous flow within these segments.There is a evidence of Seay's cyst behind the left knee.
--- NOTE | 2017-12-28 17:27 | Cardiology Progress Note ---
Assessment/Plan Assessment/Plan 1. Persistent atrial fibrillation with controlled ventricular response, LVEF is estimated about 45% to 50%. Continue cardizem and Xarelto. 2. Dyspnea, possibly combination of acute exacerbation of COPD, given the presence of acute bronchospasms on the clinical exam as well as mild diastolic heart failure likely due to atrial fibrillation with rapid ventricular response, continue diuretics. 3. History of nonobstructive CAD with angiography done in [place]. 4. History of syncope with recent admission to [facility], as could be secondary to over diuresis. 5. History of PTSD. 6. History of hypertension. 7. History of tobacco use as well as marijuana use. Subjective Subjective Atrial fibrillation at 89. Objective Last 24 Hour Vital Signs Date Time Temp Pulse Resp B/P (MAP) Pulse Ox O2 Delivery O2 Flow Rate FiO2 12/28/17 12:00 97.8 87 20 138/98 (111) 99 97.8 12/28/17 10:43 97 Room Air 12/28/17 10:43 87 20 Room Air 21 12/28/17 10:43 Room Air 12/28/17 09:00 Room Air 12/28/17 08:00 98.0 56 20 136/91 (106) 93 98.0 12/28/17 08:00 77 12/28/17 05:09 78 124/84 12/28/17 04:00 69 12/28/17 04:00 98.0 78 20 124/84 (97) 95 98.0 12/28/17 01:07 92 18 100 Room Air 21 12/28/17 01:00 36 12/28/17 01:00 94 18 95 Room Air 21 12/28/17 00:00 97.0 83 20 128/64 (85) 94 97.0 12/28/17 00:00 70 12/27/17 23:52 83 128/64 12/27/17 21:00 Room Air 12/27/17 20:35 84 136/111 12/27/17 20:00 84 12/27/17 20:00 97.6 77 20 136/111 (119) 94 97.6 Intake and Output 12/27/17 12/28/17 19:00 07:00 Intake Total 350 ml 100 ml Output Total 1000 ml 1900 ml Balance -650 ml -1800 ml Intake Oral 350 ml 100 ml Output Urine Total 1000 ml 1900 ml # Voids 1 2D Echo: EF 50%, global HK due to AFib, RVSP 32 mmHg, Mild AR/MR Laboratory Tests Test 12/27/17 20:15 12/28/17 07:25 Troponin I 0.000 ng/mL (0.000-0.056) White Blood Count 7.1 K/UL (4.8-10.8) Red Blood Count 5.39 M/UL (4.70-6.10) Hemoglobin 16.6 G/DL (14.2-18.0) Hematocrit 48.0 % (42.0-52.0) Mean Corpuscular Volume 89 FL (80-99) Mean Corpuscular Hemoglobin 30.7 PG (27.0-31.0) Mean Corpuscular Hemoglobin Concent 34.5 G/DL (32.0-36.0) Red Cell Distribution Width 11.4 % (11.6-14.8) L Platelet Count 214 K/UL (150-450) Mean Platelet Volume 6.7 FL (6.5-10.1) Neutrophils (%) (Auto) 57.6 % (45.0-75.0) Lymphocytes (%) (Auto) 33.4 % (20.0-45.0) Monocytes (%) (Auto) 6.9 % (1.0-10.0) Eosinophils (%) (Auto) 1.0 % (0.0-3.0) Basophils (%) (Auto) 1.1 % (0.0-2.0) Sodium Level 142 MMOL/L (136-145) Potassium Level 3.6 MMOL/L (3.5-5.1) Chloride Level 106 MMOL/L (98-107) Carbon Dioxide Level 26 MMOL/L (21-32) Anion Gap 10 mmol/L (5-15) Blood Urea Nitrogen 25 mg/dL (7-18) H Creatinine 1.2 MG/DL (0.55-1.30) Estimat Glomerular Filtration Rate > 60 mL/min (>60) Glucose Level 96 MG/DL (74-106) Calcium Level 9.3 MG/DL (8.5-10.1) Total Bilirubin 0.7 MG/DL (0.2-1.0) Aspartate Amino Transf (AST/SGOT) 16 U/L (15-37) Alanine Aminotransferase (ALT/SGPT) 29 U/L (12-78) Alkaline Phosphatase 105 U/L (46-116) Pro-B-Type Natriuretic Peptide 2803 pg/mL (0-125) H Total Protein 7.0 G/DL (6.4-8.2) Albumin 3.3 G/DL (3.4-5.0) L Globulin 3.7 g/dL Albumin/Globulin Ratio 0.9 (1.0-2.7) L Objective HEENT: Atraumatic and normocephalic. Anicteric. Pupils are equal, round, and reactive to light and accommodation. Extraocular muscles intact. NECK: JVP less than 5 cm. No carotid bruits. Carotid upstrokes 2+ bilaterally. CARDIOVASCULAR: Normal S1 and S2. Irregularly irregular rhythm. No murmurs, gallops or rubs, although the heart sounds are distant. LUNGS: There is bilateral rhonchi with diminished breath sounds and prolonged expiratory phase. ABDOMEN: Obese. No hepatosplenomegaly. Positive bowel sounds. EXTREMITIES: No evidence of edema, clubbing, or cyanosis. Silvano Maloney MD Dec 28, 2017 17:27
--- NOTE | 2017-12-30 10:18 | Discharge Summary ---
Discharge Summary Discharge Summary _ DATE OF ADMISSION: 12/26/2017 DATE OF DISCHARGE: 12/28/2017 REASON FOR ADMISSION: 52 years old male with history of atrial fibrillation, hypertension, congestive heart failure, COPD, active tobacco use, presented to emergency room complaining of shortness of breath for one day. Patient reported compliance with medication regimen. Patient recently moved from [place] to [place] and did not have a primary care provider yet. He denied chest pain . No fevers or chills. He denied cough, Initial vital signs revealed tachycardia . Pulse oximetry was 99% on room air. Blood pressure 137/99. No fever. Laboratory workup revealed no leukocytosis, stable hemoglobin and hematocrit. Troponin was negative. Pro BNP 4907. BUN 22 creatinine 1.2 , stable electrolytes . EKG revealed atrial fibrillation with prolonged QT interval involved and nonspecific T-wave abnormality. Chest x-ray revealed cardiomegaly with questionable mild central pulmonary vascular congestion. No focal consolidation, pleural effusion or pneumothorax noted. Patient admitted with diagnoses of CHF ,shortness of breath ,COPD , hypertension, atrial fibrillation CONSULTANTS: dealer account manager Dr. Maloney pulmonary Dr. Chappell [facility] COURSE: Patient admitted to telemetry floor. Cardiology and pulmonology consults were requested. Patient exhibited persistent atrial fibrillation with controlled ventricular rate. Patient initially was on beta madelyn, however due to acute bronchospasm, dealer account manager discontinue beta madelyn and started patient on Cardizem. Heart rate was controlled with Cardizem . Anticoagulation for cardioembolic prophylaxis with Xarelto was continued. Echocardiogram revealed ejection fraction of 50% with normal left ventricular chamber size and global left ventricular hypokinesia. Patient started on diuretic . Cardiorenal parameters and volumes were closely monitored. Nephrotoxins were avoided. Serial troponin 3 were negative. EKG revealed no acute ischemic changes. Patient was therefore ruled out for acute ID. Patient with history of nonobstructive coronary artery disease ( angiogram was done in [facility], as per patient) Supplemental oxygen provided as needed to jeep pulse oximetry above 92%. Pulmonary toilet with bronchodilators via hand held nebulizing provided as needed. Bronchospasm resolved after beta madelyn was stopped . Pulse oximetry was stable on room air. Venous duplex bilateral lower extremity revealed no evidence of DVT. Follow-up chest x-ray revealed no acute process. Pro BNP trended down form initial 4907 down to 2803. Patient was counseled on smoking cessation. Patient declined nicotine patch . Per cardiology , dyspnea was secondary to bronchospasm and CHF brought on by Atrial. fibrillation with rapid ventricular response. Patient clinically improved and was ready for discharge home. Primary physician discharged patient, provided he cleared by mri supervisor and dealer account manager. Patient was cleared by mri supervisor. While waiting for clearance from dealer account manager , patient stated that he needs to get home urgently, and expressed desire to sign against medical advise form. The risks and consequences of signing AGAINST MEDICAL ADVICE were discussed with patient in detail. Patient verbalized understanding, nevertheless signed AMA form and left. FINAL DIAGNOSES: Persistent atrial fibrillation with controlled ventricular response CHF exacerbation Bronchospasm Hypertension Tobacco use History of nonobstructive coronary artery disease PTSD I have been assigned to dictate discharge summary for this account. I was not involved in the patient's management. Thalia Granados NP Dec 30, 2017 10:18
== END 2017-12-28 13:47 | disposition left against medical advice (07) | DRG 194 ==
LOC: EMR 13:50 → 2E 15:51 → EDBEDREQ 16:31 → 2E 12-28 06:53
DX: I11.0 Hypertensive heart disease with heart failure (principal); I48.1 Persistent atrial fibrillation; Z79.01 Long term (current) use of anticoagulants; I50.33 Acute on chronic diastolic (congestive) heart failure; J98.01 Acute bronchospasm; I10 Essential (primary) hypertension; F17.200 Nicotine dependence, unspecified, uncomplicated; F43.10 Post-traumatic stress disorder, unspecified; J44.1 Chronic obstructive pulmonary disease with (acute) exacerbation
CPT/HCPCS: 36415; 71045; 80048; 80053; 80069; 80307; 81003; 82550; 82553; 83880; 84484; 85025; 93005; 93306; 93970; 94640; 94664; 94760; J7620; J8499